=== PATIENT | male | born 1935 | race Two or more races ===

== ENCOUNTER → 2016-11-20 | Outpatient (CLI) | payer MEDICARE, OTHER ==
[~2016-11-20] MED LIST: ALPR0.5T7 PO; ASOPT; CLOP75TA28 PO; ERGO1CAP6 PO; FINA5TAB4 PO; LATANOPROST; LISI-275 PO; METF500T PO; NEBI5TAB2 PO; TEST1.62 TD
[2016-11-20 12:25] LABS: Basophils # (auto) 0 uL; Basophils % (auto) 0.4 % (0.0-2.0); CONDITION Y; Eosinophils # (auto) 0.2 uL; Eosinophils % (auto) 3.3 % (0.0-7.0); Hematocrit 43.1 % (41.0-53.0); Hemoglobin 14.2 g/dL (13.5-17.5); Lymphocytes # (auto) 1.4 uL; Lymphocytes % (auto) 26.4 % (10.0-50.0); Mean Corpuscular Hemoglobin 28.7 pg (28.0-32.0); Mean Corpuscular Volume 86.8 fL (80.0-100.0); Mean Platelet Volume 8.1 fL (7.4-10.4); Monocytes # (auto) 0.3 uL; Monocytes % (auto) 5.5 % (0.0-12.0); Neutrophils # (auto) 3.5 uL; Neutrophils % (auto) 64.4 % (37.0-80.0); Platelet Count (auto) 295 10^3/uL (140-450); Red Cell Distribution Width 14.3 % (11.6-16.0); White Blood Cell 5.4 10^3/uL (4.4-10.8)
[2016-11-20 12:26] LABS: Urine Bilirubin Negative (Negative); Urine Blood Negative /uL (Negative); Urine Color Yellow (Yellow); Urine Glucose Normal (Normal); Urine Ketone Negative (Negative); Urine Nitrite Negative (Negative); Urine Urobilinogen Normal (Negative); Urine pH 5.5 (5.0-8.0)
[2016-11-20 13:16] LABS: Albumin 3.6 g/dL (3.4-5.0); Alkaline Phosphatase 75 U/L (45-117); Anion Gap 8 (5-15); Aspartate Aminotransferase 9 U/L (15-37); Bilirubin, Direct < 0.1 mg/dL (0-0.2); Bilirubin, Total 0.5 mg/dL (0.2-1.0); Blood Urea Nitrogen 16 mg/dL (7-18); Calcium 8.8 mg/dL (8.5-10.1); Carbon Dioxide 27 mmol/L (21-32); Chloride 107 mmol/L (98-107); Cholesterol 165 mg/dL (< 200); GFR African American 105 mL/min; GFR Non-African American 87 mL/min; Glucose 131 mg/dL (74-106); HDL Cholesterol 46 mg/dL (40-59); LDL Cholesterol 107 mg/dL (< 100); Potassium 3.7 mmol/L (3.5-5.1); Sodium 142 mmol/L (136-145); Triglycerides 141 mg/dL (< 150)
== END | disposition home or self-care (01) ==
LOC: LAB 08:19
PROVIDERS: ATTEND Internal Medicine Cardiovascular Disease
DX: I10 Essential (primary) hypertension (principal); E78.00 Pure hypercholesterolemia, unspecified; K74.1 Hepatic sclerosis; E11.9 Type 2 diabetes mellitus without complications; R97.20 Elevated prostate specific antigen [PSA]; R53.81 Other malaise; E03.9 Hypothyroidism, unspecified; D64.9 Anemia, unspecified; E55.9 Vitamin D deficiency, unspecified; N39.0 Urinary tract infection, site not specified
CPT/HCPCS: 36415; 80048; 80061; 80076; 81003; 82306; 83036; 84153; 84403; 84439; 84443; 85025

== ENCOUNTER → 2017-03-28 | Outpatient (CLI) | payer MEDICARE, OTHER ==
[~2017-03-28] MED LIST changes: +READI-CAT 2 (BARIUM SULF)(VANILLA SMOOTHIE) 450ML ONE
== END | disposition home or self-care (01) ==
LOC: Rad HDHVI 08:59
PROVIDERS: ATTEND Internal Medicine Cardiovascular Disease
DX: K57.32 Diverticulitis of large intestine without perforation or abscess without bleeding (principal); N40.0 Benign prostatic hyperplasia without lower urinary tract symptoms; I70.0 Atherosclerosis of aorta; K40.20 Bilateral inguinal hernia, without obstruction or gangrene, not specified as recurrent
CPT/HCPCS: 74176

== ENCOUNTER → 2017-06-06 | Outpatient (CLI) | payer MEDICARE, OTHER ==
[~2017-06-06] MED LIST changes: -READI-CAT 2 (BARIUM SULF)(VANILLA SMOOTHIE) 450ML ONE
== END | disposition home or self-care (01) ==
LOC: Rad HDHVI 09:03
PROVIDERS: ATTEND Internal Medicine Cardiovascular Disease
DX: E11.9 Type 2 diabetes mellitus without complications (principal); R06.02 Shortness of breath
CPT/HCPCS: 93306

== ENCOUNTER → 2017-06-14 | Outpatient (CLI) | payer MEDICARE, OTHER ==
[~2017-06-14] VITALS: Ht 175.3 cm; Wt 72.6 kg
== END | disposition home or self-care (01) ==
LOC: Rad HDHVI 10:27
PROVIDERS: ATTEND Internal Medicine Cardiovascular Disease
DX: J44.9 Chronic obstructive pulmonary disease, unspecified (principal); E11.9 Type 2 diabetes mellitus without complications; F09 Unspecified mental disorder due to known physiological condition; F03.90 Unspecified dementia, unspecified severity, without behavioral disturbance, psychotic disturbance, mood disturbance, and anxiety
CPT/HCPCS: 78452; 93017; 96374; A9500

== ENCOUNTER → 2017-08-13 | Outpatient (CLI) | payer MEDICARE, OTHER ==
[2017-08-13 12:14] LABS: Urine Blood Negative /uL (Negative); Urine Specific Gravity 1.017 (1.001-1.035)
[2017-08-13 12:17] LABS: Basophils # (auto) 0 uL; Basophils % (auto) 0.5 % (0.0-2.0); Eosinophils # (auto) 0.1 uL; Hematocrit 44.9 % (41.0-53.0); Hemoglobin 14.7 g/dL (13.5-17.5); Lymphocytes # (auto) 1.4 uL; Lymphocytes % (auto) 29.3 % (10.0-50.0); Mean Corpuscular Hemoglobin 28.5 pg (28.0-32.0); Mean Corpuscular Hgb Conc. 32.7 g/dL (32.0-36.0); Mean Corpuscular Volume 87.2 fL (80.0-100.0); Monocytes # (auto) 0.3 uL; Monocytes % (auto) 7.1 % (0.0-12.0); Neutrophils # (auto) 2.9 uL; Neutrophils % (auto) 60.1 % (37.0-80.0); Nucleated Red Blood Cells % 0.2 %; Platelet Count (auto) 273 10^3/uL (140-450); Red Blood Cells 5.15 10^6/uL (4.5-5.90); Red Cell Distribution Width 14.2 % (11.8-14.3); White Blood Cell 4.8 10^3/uL (4.4-10.8)
[2017-08-13 12:40] LABS: Free T4 (Free Thyroxine) 1.22 ng/dL (0.89-1.76)
[2017-08-13 13:27] LABS: Albumin 3.7 g/dL (3.4-5.0); BUN/Creatinine Ratio 17.8; Bilirubin, Total 0.5 mg/dL (0.2-1.0); Potassium 4.5 mmol/L (3.5-5.1); Total Protein 7.7 g/dL (6.4-8.2)
== END | disposition home or self-care (01) ==
LOC: LAB 08:18
PROVIDERS: ATTEND Internal Medicine Cardiovascular Disease
DX: E78.00 Pure hypercholesterolemia, unspecified (principal); D64.9 Anemia, unspecified; E11.9 Type 2 diabetes mellitus without complications; E03.9 Hypothyroidism, unspecified; E55.9 Vitamin D deficiency, unspecified; R53.81 Other malaise; R97.20 Elevated prostate specific antigen [PSA]; D51.9 Vitamin B12 deficiency anemia, unspecified; N39.0 Urinary tract infection, site not specified; I10 Essential (primary) hypertension
CPT/HCPCS: 36415; 80053; 80061; 81003; 82306; 82607; 83036; 84403; 84439; 84443; 85025

== ENCOUNTER → 2018-06-06 | Outpatient (CLI) | payer MEDICARE, OTHER ==
[2018-06-06 12:12] LABS: Urine Blood Negative /uL (Negative); Urine Specific Gravity 1.019 (1.001-1.035)
[2018-06-06 12:24] LABS: Basophils # (auto) 0 uL; Basophils % (auto) 0.4 % (0.0-2.0); Eosinophils # (auto) 0.3 uL; Eosinophils % (auto) 4.4 % (0.0-7.0); Hematocrit 45.4 % (41.0-53.0); Lymphocytes # (auto) 1.1 uL; Lymphocytes % (auto) 18.6 % (10.0-50.0); Mean Corpuscular Hemoglobin 29.7 pg (28.0-32.0); Mean Corpuscular Hgb Conc. 33.2 g/dL (32.0-36.0); Mean Corpuscular Volume 89.4 fL (80.0-100.0); Monocytes # (auto) 0.5 uL; Monocytes % (auto) 8.1 % (0.0-12.0); Neutrophils # (auto) 3.9 uL; Neutrophils % (auto) 68.5 % (37.0-80.0); Platelet Count (auto) 253 10^3/uL (140-450); Red Blood Cells 5.07 10^6/uL (4.5-5.90); White Blood Cell 5.6 10^3/uL (4.4-10.8)
[2018-06-06 12:25] LABS: Potassium 4.5 mmol/L (3.5-5.1)
[2018-06-06 12:32] LABS: Free T4 (Free Thyroxine) 1.19 ng/dL (0.89-1.76); Prostate Specific Antigen 0.96 ng/mL (0.0-4.0)
[2018-06-06 12:37] LABS: Albumin 3.7 g/dL (3.4-5.0); BUN/Creatinine Ratio 14.3; Bilirubin, Total 0.5 mg/dL (0.2-1.0); Calcium 8.5 mg/dL (8.5-10.1); Total Protein 7.4 g/dL (6.4-8.2)
== END | disposition home or self-care (01) ==
LOC: LAB 08:48
PROVIDERS: ATTEND Internal Medicine Cardiovascular Disease
DX: N39.0 Urinary tract infection, site not specified (principal); E03.9 Hypothyroidism, unspecified; E55.9 Vitamin D deficiency, unspecified; C61 Malignant neoplasm of prostate; E29.1 Testicular hypofunction; E11.9 Type 2 diabetes mellitus without complications; D51.9 Vitamin B12 deficiency anemia, unspecified; I10 Essential (primary) hypertension; D64.9 Anemia, unspecified
CPT/HCPCS: 36415; 80053; 80061; 81003; 82306; 82607; 83036; 84153; 84403; 84439; 84443; 85025; 87086

== ENCOUNTER → 2018-07-08 | Outpatient (CLI) | payer MEDICARE, BC ==
[~2018-07-08] VITALS: Ht 175.3 cm; Wt 78.0 kg
== END | disposition home or self-care (01) ==
LOC: Rad HDHVI 09:55
PROVIDERS: ATTEND Internal Medicine Cardiovascular Disease
DX: I10 Essential (primary) hypertension (principal); E11.9 Type 2 diabetes mellitus without complications; F09 Unspecified mental disorder due to known physiological condition
CPT/HCPCS: 78452; 93017; 96374; A9500

== ENCOUNTER → 2019-01-27 | Outpatient (CLI) | payer MEDICARE, BC ==
[2019-01-27 11:44] LABS: Urine Blood Negative /uL (Negative); Urine Specific Gravity 1.022 (1.001-1.035)
[2019-01-27 11:51] LABS: Potassium 4.1 mmol/L (3.5-5.1)
[2019-01-27 11:52] LABS: Basophils # (auto) 0 uL; Basophils % (auto) 0.6 % (0.0-2.0); Eosinophils # (auto) 0.2 uL; Eosinophils % (auto) 3.5 % (0.0-7.0); Hematocrit 42.5 % (41.0-53.0); Hemoglobin 14.1 g/dL (13.5-17.5); Lymphocytes # (auto) 1.5 uL; Lymphocytes % (auto) 25.6 % (10.0-50.0); Mean Corpuscular Hemoglobin 29.5 pg (28.0-32.0); Mean Corpuscular Hgb Conc. 33.1 g/dL (32.0-36.0); Mean Corpuscular Volume 89.3 fL (80.0-100.0); Monocytes # (auto) 0.4 uL; Monocytes % (auto) 7.5 % (0.0-12.0); Neutrophils # (auto) 3.6 uL; Neutrophils % (auto) 62.8 % (37.0-80.0); Platelet Count (auto) 246 10^3/uL (140-450); Red Blood Cells 4.76 10^6/uL (4.5-5.90); Red Cell Distribution Width 14.2 % (11.8-14.3); White Blood Cell 5.7 10^3/uL (4.4-10.8)
[2019-01-27 12:00] LABS: Free T4 (Free Thyroxine) 1.06 ng/dL (0.89-1.76)
[2019-01-27 12:01] LABS: Albumin 3.4 g/dL (3.4-5.0); BUN/Creatinine Ratio 17.1; Bilirubin, Total 0.5 mg/dL (0.2-1.0); Calcium 8.6 mg/dL (8.5-10.1); Prostate Specific Antigen 0.8 ng/mL (0.0-4.0)
== END | disposition home or self-care (01) ==
LOC: LAB 08:27
PROVIDERS: ATTEND Internal Medicine Cardiovascular Disease
DX: E03.9 Hypothyroidism, unspecified (principal); K90.9 Intestinal malabsorption, unspecified; C61 Malignant neoplasm of prostate; E29.1 Testicular hypofunction; N39.0 Urinary tract infection, site not specified; D51.9 Vitamin B12 deficiency anemia, unspecified; Z79.899 Other long term (current) drug therapy
CPT/HCPCS: 36415; 80053; 80061; 81003; 82306; 82607; 83036; 84153; 84403; 84439; 84443; 85025

== ENCOUNTER → 2019-07-10 | Outpatient (CLI) | payer MEDICARE, BC | END | disposition home or self-care (01) | LOC: Rad HDHVI 13:13 | PROVIDERS: ATTEND Internal Medicine Cardiovascular Disease | DX: I49.5 Sick sinus syndrome (principal); R06.02 Shortness of breath; R07.89 Other chest pain | CPT/HCPCS: 93306 ==

== ENCOUNTER → 2019-07-13 | Outpatient (CLI) | payer MEDICARE, BC ==
[~2019-07-13] VITALS: Ht 172.7 cm; Wt 74.8 kg
[~2019-07-13] MED LIST changes: +ADENOSINE 90 MG/30 ML INJ IV ONE
== END | disposition home or self-care (01) ==
LOC: Rad HDHVI 13:39
PROVIDERS: ATTEND Internal Medicine Cardiovascular Disease
DX: I25.10 Atherosclerotic heart disease of native coronary artery without angina pectoris (principal); I10 Essential (primary) hypertension; E11.9 Type 2 diabetes mellitus without complications; R06.00 Dyspnea, unspecified; Z95.0 Presence of cardiac pacemaker; Z95.5 Presence of coronary angioplasty implant and graft; Z82.49 Family history of ischemic heart disease and other diseases of the circulatory system
CPT/HCPCS: 78452; 93017; 96374; A9500; J0153

== ENCOUNTER → 2020-01-13 | Outpatient (CLI) | payer MEDICARE, BC ==
[~2020-01-13] MED LIST changes: -ADENOSINE 90 MG/30 ML INJ IV ONE
[2020-01-13 12:07] LABS: Basophils # (auto) 0 10 ^3/uL (0-0.2); Basophils % (auto) 0.6 % (0.0-2.0); Eosinophils # (auto) 0.3 10 ^3/uL (0-0.8); Eosinophils % (auto) 4.8 % (0.0-7.0); Hematocrit 41.5 % (41.0-53.0); Hemoglobin 13.7 g/dL (13.5-17.5); Lymphocytes # (auto) 1.2 10 ^3/uL (0.4-5.4); Lymphocytes % (auto) 20.4 % (10.0-50.0); Mean Corpuscular Hemoglobin 29.6 pg (28.0-32.0); Mean Corpuscular Volume 89.6 fL (80.0-100.0); Monocytes # (auto) 0.5 10 ^3/uL (0-1.3); Neutrophils # (auto) 3.8 10 ^3/uL (1.6-8.6); Neutrophils % (auto) 66.2 % (37.0-80.0); Nucleated Red Blood Cells % 0.1 %; Platelet Count (auto) 262 10^3/uL (140-450); Red Blood Cells 4.64 10^6/uL (4.5-5.90); Red Cell Distribution Width 14.4 % (11.8-14.3); White Blood Cell 5.7 10^3/uL (4.4-10.8)
[2020-01-13 12:13] LABS: Albumin 3.5 g/dL (3.4-5.0)
[2020-01-13 12:18] LABS: BUN/Creatinine Ratio 19.6; Bilirubin, Total 0.4 mg/dL (0.2-1.0); Calcium 8.7 mg/dL (8.5-10.1); Total Protein 7.1 g/dL (6.4-8.2)
[2020-01-13 12:21] LABS: Free T4 (Free Thyroxine) 0.99 ng/dL (0.89-1.76)
[2020-01-13 12:22] LABS: Prostate Specific Antigen 0.78 ng/mL (0.0-4.0)
[2020-01-13 12:26] LABS: Urine Blood Negative /uL (Negative); Urine Specific Gravity 1.026 (1.001-1.035)
== END | disposition home or self-care (01) ==
LOC: LAB 08:39
PROVIDERS: ATTEND Internal Medicine Cardiovascular Disease
DX: C61 Malignant neoplasm of prostate (principal); E03.9 Hypothyroidism, unspecified; K90.9 Intestinal malabsorption, unspecified; E29.1 Testicular hypofunction; N39.0 Urinary tract infection, site not specified; D51.9 Vitamin B12 deficiency anemia, unspecified; Z00.00 Encounter for general adult medical examination without abnormal findings; Z79.899 Other long term (current) drug therapy
CPT/HCPCS: 36415; 80053; 80061; 81003; 82306; 82607; 83036; 84153; 84403; 84439; 84443; 85025; 87086

== ENCOUNTER → 2020-01-19 | Outpatient (CLI) | payer MEDICARE, BC | END | disposition home or self-care (01) | LOC: LAB 14:37 | PROVIDERS: ATTEND Internal Medicine Cardiovascular Disease | DX: N39.0 Urinary tract infection, site not specified (principal) | CPT/HCPCS: 87086 ==

== ENCOUNTER → 2020-08-22 | Outpatient (CLI) | payer MEDICARE, BC | END | disposition home or self-care (01) | LOC: Rad HDHVI 09:01 | PROVIDERS: ATTEND Internal Medicine Cardiovascular Disease | DX: I25.10 Atherosclerotic heart disease of native coronary artery without angina pectoris (principal); R06.02 Shortness of breath | CPT/HCPCS: 93306 ==

== ENCOUNTER → 2020-08-25 | Outpatient (CLI) | payer MEDICARE, BC ==
[~2020-08-25] VITALS: Ht 175.3 cm; Wt 75.3 kg
== END | disposition home or self-care (01) ==
LOC: Rad HDHVI 08:08
PROVIDERS: ATTEND Internal Medicine Cardiovascular Disease
DX: I25.10 Atherosclerotic heart disease of native coronary artery without angina pectoris (principal); I10 Essential (primary) hypertension; E11.9 Type 2 diabetes mellitus without complications; Z82.49 Family history of ischemic heart disease and other diseases of the circulatory system; Z95.0 Presence of cardiac pacemaker
CPT/HCPCS: 78452; 93017; 96374; A9500

== ENCOUNTER → 2020-08-29 | Outpatient (CLI) | payer MEDICARE, BC ==
[2020-08-29 12:43] LABS: Urine Blood Negative /uL (Negative); Urine Specific Gravity 1.026 (1.001-1.035)
[2020-08-29 12:45] LABS: Albumin 3.7 g/dL (3.4-5.0); Potassium 4.1 mmol/L (3.5-5.1)
[2020-08-29 12:52] LABS: BUN/Creatinine Ratio 20.6; Bilirubin, Total 0.6 mg/dL (0.2-1.0); Calcium 8.7 mg/dL (8.5-10.1); Free T4 (Free Thyroxine) 1.29 ng/dL (0.89-1.76); Prostate Specific Antigen 1.03 ng/mL (0.0-4.0); Total Protein 6.9 g/dL (6.4-8.2)
[2020-08-29 13:13] LABS: Basophils # (auto) 0 10 ^3/uL (0-0.2); Basophils % (auto) 0.5 % (0.0-2.0); Eosinophils # (auto) 0.2 10 ^3/uL (0-0.8); Eosinophils % (auto) 2.8 % (0.0-7.0); Hematocrit 42.2 % (41.0-53.0); Lymphocytes # (auto) 1.6 10 ^3/uL (0.4-5.4); Lymphocytes % (auto) 25.9 % (10.0-50.0); Mean Corpuscular Hemoglobin 29.7 pg (28.0-32.0); Mean Corpuscular Hgb Conc. 33.2 g/dL (32.0-36.0); Mean Corpuscular Volume 89.6 fL (80.0-100.0); Monocytes # (auto) 0.4 10 ^3/uL (0-1.3); Monocytes % (auto) 6.8 % (0.0-12.0); Neutrophils # (auto) 4.1 10 ^3/uL (1.6-8.6); Nucleated Red Blood Cells % 0.1 %; Platelet Count (auto) 275 10^3/uL (140-450); Red Blood Cells 4.71 10^6/uL (4.5-5.90); Red Cell Distribution Width 14.2 % (11.8-14.3); White Blood Cell 6.4 10^3/uL (4.4-10.8)
== END | disposition home or self-care (01) ==
LOC: LAB 10:07
PROVIDERS: ATTEND Internal Medicine Cardiovascular Disease
DX: C61 Malignant neoplasm of prostate (principal); D51.3 Other dietary vitamin B12 deficiency anemia; I10 Essential (primary) hypertension; E11.9 Type 2 diabetes mellitus without complications; E55.9 Vitamin D deficiency, unspecified; D64.9 Anemia, unspecified; R00.2 Palpitations; R53.1 Weakness; R30.0 Dysuria
CPT/HCPCS: 36415; 80053; 80061; 81003; 82306; 82607; 83036; 84153; 84403; 84439; 84443; 85025

== ENCOUNTER → 2021-06-07 | Outpatient (CLI) | payer MEDICARE, BC | END | disposition home or self-care (01) | LOC: Rad HDHVI 13:00 | PROVIDERS: ATTEND Internal Medicine Cardiovascular Disease | DX: R07.89 Other chest pain (principal); R06.02 Shortness of breath | CPT/HCPCS: 93306 ==

== ENCOUNTER → 2021-08-11 | Outpatient (CLI) | payer MEDICARE, BC ==
[~2021-08-11] MED LIST changes: +SODIUM CHLORIDE 0.9% 500 ML IV SCH
[2021-08-11 10:20] VITALS: BP 170/84
[2021-08-11 13:45] VITALS: BP 143/80
[2021-08-11 15:29] LABS: Basophils # (auto) 0.2 10 ^3/uL (0-0.2); Basophils % (auto) 1.8 % (0.0-2.0); Eosinophils # (auto) 0 10 ^3/uL (0-0.8); Hematocrit 40.9 % (41.0-53.0); Hemoglobin 13.7 g/dL (13.5-17.5); Lymphocytes # (auto) 0.3 10 ^3/uL (0.4-5.4); Lymphocytes % (auto) 3.3 % (10.0-50.0); Mean Corpuscular Hemoglobin 29.4 pg (28.0-32.0); Mean Corpuscular Hgb Conc. 33.5 g/dL (32.0-36.0); Mean Corpuscular Volume 87.8 fL (80.0-100.0); Monocytes # (auto) 0.3 10 ^3/uL (0-1.3); Monocytes % (auto) 2.5 % (0.0-12.0); Neutrophils # (auto) 9.6 10 ^3/uL (1.6-8.6); Neutrophils % (auto) 92.4 % (37.0-80.0); Nucleated Red Blood Cells % 0.1 %; Red Blood Cells 4.66 10^6/uL (4.5-5.90); Red Cell Distribution Width 14.4 % (11.8-14.3); White Blood Cell 10.4 10^3/uL (4.4-10.8)
[2021-08-11 15:34] LABS: Urine Blood 3+ /uL (Negative); Urine Specific Gravity 1.019 (1.001-1.035)
[2021-08-11 15:38] LABS: Potassium 3.8 mmol/L (3.5-5.1)
[2021-08-11 15:46] LABS: Albumin 3.5 g/dL (3.4-5.0); BUN/Creatinine Ratio 14.4; Bilirubin, Total 0.7 mg/dL (0.2-1.0); Calcium 8.6 mg/dL (8.5-10.1); Magnesium 1.9 mg/dL (1.6-2.6); Total Protein 7.1 g/dL (6.4-8.2)
== END | disposition home or self-care (01) ==
LOC: CHF HDHVI 10:14
PROVIDERS: ATTEND Internal Medicine Cardiovascular Disease
DX: D51.3 Other dietary vitamin B12 deficiency anemia (principal); I10 Essential (primary) hypertension; E11.9 Type 2 diabetes mellitus without complications; I25.10 Atherosclerotic heart disease of native coronary artery without angina pectoris; R06.02 Shortness of breath
CPT/HCPCS: 36415; 80053; 81003; 82306; 83036; 83735; 85025; 96360; 96361; G0463

== ENCOUNTER → 2022-04-30 | Outpatient (CLI) | payer MEDICARE, BC ==
[~2022-04-30] MED LIST changes: -SODIUM CHLORIDE 0.9% 500 ML IV SCH
[2022-04-30 12:01] LABS: Basophils # (auto) 0 10 ^3/uL (0-0.2); Basophils % (auto) 0.3 % (0.0-2.0); Eosinophils # (auto) 0.1 10 ^3/uL (0-0.8); Eosinophils % (auto) 1.6 % (0.0-7.0); Hematocrit 42.1 % (41.0-53.0); Hemoglobin 13.7 g/dL (13.5-17.5); Lymphocytes # (auto) 1.4 10 ^3/uL (0.4-5.4); Lymphocytes % (auto) 20.6 % (10.0-50.0); Mean Corpuscular Hemoglobin 28.8 pg (28.0-32.0); Mean Corpuscular Hgb Conc. 32.5 g/dL (32.0-36.0); Mean Corpuscular Volume 88.6 fL (80.0-100.0); Monocytes # (auto) 0.3 10 ^3/uL (0-1.3); Monocytes % (auto) 4.9 % (0.0-12.0); Neutrophils % (auto) 72.6 % (37.0-80.0); Red Blood Cells 4.75 10^6/uL (4.5-5.90); Red Cell Distribution Width 14.7 % (11.8-14.3); White Blood Cell 6.9 10^3/uL (4.4-10.8)
[2022-04-30 12:40] LABS: Free T4 (Free Thyroxine) 1.3 ng/dL (0.89-1.76); Prostate Specific Antigen 1.04 ng/mL (0.0-4.0)
[2022-04-30 14:01] LABS: Urine Blood Negative /uL (Negative); Urine Specific Gravity 1.023 (1.001-1.035)
[2022-04-30 16:22] LABS: Albumin 3.5 g/dL (3.4-5.0); BUN/Creatinine Ratio 17.8; Bilirubin, Total 0.6 mg/dL (0.2-1.0); Total Protein 6.4 g/dL (6.4-8.2)
== END | disposition home or self-care (01) ==
LOC: LAB 09:06
PROVIDERS: ATTEND Internal Medicine Cardiovascular Disease
DX: E11.21 Type 2 diabetes mellitus with diabetic nephropathy (principal); E55.9 Vitamin D deficiency, unspecified
CPT/HCPCS: 36415; 80053; 80061; 81003; 82306; 82607; 83036; 84153; 84403; 84439; 84443; 85025